=== PATIENT | male | born 1995 | race Caucasian/White ===

== ENCOUNTER 2019-03-22 18:54 | Emergency (ER) | payer OTHER ==
[~2019-03-22] VITALS: Ht 165.1 cm; Wt 86.2 kg
[2019-03-22 18:55] VITALS: BP 129/68
[2019-03-22 19:34] LABS: HEMATOCRIT 44.4 % (42.0-52.0); HEMOGLOBIN 15.7 g/dl (14.0-18.0); MEAN CELL VOLUME 84.4 fl (80.0-94.0); MEAN CORPUSCULAR HGB 29.8 pg (27.0-31.0); MEAN CORPUSCULAR HGB CONC 35.4 g/dl (33.0-37.0); MEAN PLATELET VOLUME 9.4 fl (9.6-12.3); PLATELET COUNT AUTOMATED 260 10*3/uL (130-400); RED BLOOD COUNT 5.26 10*6/uL (4.50-5.90); RED CELL DISTRI WIDTH 12.2 % (0-14.5); WHITE BLOOD COUNT 20.8 10*3/uL (4.8-10.8)
[2019-03-22 19:49] LABS: ALBUMIN 3.7 gm/dl (3.1-4.5); ALKALINE PHOSPHATASE 90 U/L (45-117); BUN 10 mg/dl (7-24); CHLORIDE 103 mmol/L (98-107); SGOT/AST 15 IU/L (3-35); SGPT/ALT 27 U/L (12-78); SODIUM 135 mmol/L (136-145); TOTAL PROTEIN 8.4 gm/dL (6.4-8.2)
[2019-03-22 20:08] LABS: ATYPICAL LYMPHS 3 % (0-0); TOTAL CELLS COUNTED 100 #CELLS
[2019-03-22 20:09] LABS: PLATELET SUFFICIENCY NORMAL (NORMAL)
[2019-03-22] MEDS ORDERED: KEFLEX500 M1 PO (21:12)
[2019-03-22] MEDS ORDERED: ULTRAM50 MG PO (21:14)
== END 2019-03-22 21:18 | disposition home or self-care (01) ==
LOC: ED 18:54
PROVIDERS: Emergency Medicine Emergency Medical Services
DX: J02.0 Streptococcal pharyngitis (principal); B27.90 Infectious mononucleosis, unspecified without complication; Z91.040 Latex allergy status

== ENCOUNTER → 2020-07-14 | Outpatient (CLI) | payer SELFPAY ==
[~2020-07-14] MED LIST: KEFLEX500 M1 PO; ULTRAM50 MG PO
== END | disposition home or self-care (01) ==
LOC: COVID19 16:04
PROVIDERS: ATTEND Internal Medicine
DX: Z20.828 Contact with and (suspected) exposure to other viral communicable diseases (principal)

== ENCOUNTER 2020-07-17 11:26 | Emergency (ER) | payer SELFPAY ==
[~2020-07-17] VITALS: Ht 170.1 cm; Wt 93.4 kg
[2020-07-17 11:37] VITALS: BP 153/107
== END 2020-07-17 13:12 | disposition home or self-care (01) ==
LOC: ED 11:26
DX: S81.012A Laceration without foreign body, left knee, initial encounter (principal); W45.8XXA Other foreign body or object entering through skin, initial encounter; Y93.89 Activity, other specified; Y92.89 Other specified places as the place of occurrence of the external cause; Y99.8 Other external cause status